=== PATIENT | male | born 1975 | race Caucasian/White ===

== ENCOUNTER 2016-05-17 07:14 | Emergency (ER) | payer BC ==
[~2016-05-17] VITALS: Ht 180.3 cm; Wt 97.5 kg
[~2016-05-17 07:14] MED LIST: CYCLOBENZAPRINE10 MG PO; EC NAPROSYN500 MG PO; NKHM; NORFLEX100 MG PO; PERCOCET 325 MG1 TA7 PO; TRAMADOL HCL50 MG PO; VICODIN ES 7501 TAB PO
[2016-05-17] MEDS ORDERED: ZITHROMAX250 MG PO (08:31)
== END 2016-05-17 08:40 | disposition home or self-care (01) ==
LOC: ED 07:14
DX: J40 Bronchitis, not specified as acute or chronic (principal)

== ENCOUNTER 2018-03-09 01:02 | Emergency (ER) | payer BC ==
[~2018-03-09] VITALS: Ht 180.3 cm; Wt 95.7 kg
[~2018-03-09 01:02] MED LIST changes: +ZITHROMAX250 MG PO
[2018-03-09 01:26] LABS: BASO # 0.1 10*3/uL (0.0-0.1); BASO % 0.5 % (0.0-1.0); EOS # 0.2 10*3/uL (0.0-0.4); HEMATOCRIT 44.6 % (42.0-52.0); HEMOGLOBIN 15.4 g/dl (14.0-18.0); LYMPH # 1.9 10*3/uL (1.3-4.4); LYMPH % 18.2 % (27.0-41.0); MEAN CORPUSCULAR HGB 30.7 pg (27.0-31.0); MEAN CORPUSCULAR HGB CONC 34.5 g/dl (33.0-37.0); MEAN PLATELET VOLUME 8.5 fl (9.6-12.3); MONO # 1.1 10*3/uL (0.1-1.0); MONO % 10.6 % (3.0-9.0); NEUT # 7.2 10*3/uL (2.3-7.9); NEUT % 68.2 % (47.0-73.0); PLATELET COUNT AUTOMATED 256 10*3/uL (130-400); RED BLOOD COUNT 5.01 10*6/uL (4.50-5.90); RED CELL DISTRI WIDTH 12.5 % (0-14.5); WHITE BLOOD COUNT 10.5 10*3/uL (4.8-10.8)
[2018-03-09 01:29] LABS: BILIRUBIN NEGATIVE (NEGATIVE); BLOOD TRACE-INTACT (NEGATIVE); CLARITY CLEAR (CLEAR); COLOR YELLOW (YELLOW); GLUCOSE NEGATIVE (NEGATIVE); KETONE TRACE (NEGATIVE); LEUKO ESTERASE NEGATIVE (NEGATIVE); NITRITE NEGATIVE (NEGATIVE); SPECIFIC GRAVITY >= 1.030 (1.005-1.030); UROBILINOGEN 0.2 E.U./dl (0.2-1.0)
[2018-03-09 01:40] LABS: ALBUMIN 3.6 gm/dl (3.1-4.5); ALKALINE PHOSPHATASE 80 U/L (45-117); BUN 18 mg/dl (7-24); CHLORIDE 105 mmol/L (98-107); CREATININE 1.32 mg/dL (0.70-1.30); LIPASE 94 U/L (73-393); POTASSIUM 4.2 mmol/L (3.5-5.1); SGOT/AST 20 IU/L (3-35); SGPT/ALT 37 U/L (12-78); SODIUM 141 mmol/L (136-145); TOTAL PROTEIN 7.4 gm/dL (6.4-8.2)
[2018-03-09] MEDS ORDERED: ULTRAM50 MG PO (04:12)
== END 2018-03-09 04:16 | disposition home or self-care (01) ==
LOC: ED 01:02
PROVIDERS: Nurse Practitioner Family
DX: N20.0 Calculus of kidney (principal); Z87.442 Personal history of urinary calculi

== ENCOUNTER → 2022-05-23 | Outpatient (CLI) | payer OTHER ==
[~2022-05-23] MED LIST changes: +ULTRAM50 MG PO
== END | disposition home or self-care (01) ==
LOC: MRI 05-09 14:00
PROVIDERS: ATTEND Nurse Practitioner Family
DX: S83.92XA Sprain of unspecified site of left knee, initial encounter (principal); M22.42 Chondromalacia patellae, left knee; M25.462 Effusion, left knee; X58.XXXA Exposure to other specified factors, initial encounter; Y93.89 Activity, other specified; Y92.89 Other specified places as the place of occurrence of the external cause; Y99.8 Other external cause status

== ENCOUNTER → 2023-02-20 | Outpatient (CLI) | payer BC ==
[2023-02-20 12:13] LABS: BASO # 0.1 10*3/uL (0.0-0.1); BASO % 1.1 % (0.0-1.0); EOS # 0.3 10*3/uL (0.0-0.4); EOS % 5.3 % (1.0-4.0); HEMATOCRIT 44.6 % (42.0-52.0); LYMPH # 1.4 10*3/uL (1.3-4.4); MEAN CELL VOLUME 89.4 fl (80.0-94.0); MEAN CORPUSCULAR HGB 29.9 pg (27.0-31.0); MEAN CORPUSCULAR HGB CONC 33.4 g/dl (33.0-37.0); MEAN PLATELET VOLUME 8.8 fl (9.6-12.3); MONO # 0.8 10*3/uL (0.1-1.0); MONO % 16.5 % (3.0-9.0); NEUT # 2.2 10*3/uL (2.3-7.9); NEUT % 46.9 % (47.0-73.0); PLATELET COUNT AUTOMATED 229 10*3/uL (130-400); RED BLOOD COUNT 4.99 10*6/uL (4.50-5.90); RED CELL DISTRI WIDTH 12.5 % (0-14.5); RETICULOCYTE % 1.45 % (0.50-2.50); WHITE BLOOD COUNT 4.7 10*3/uL (4.8-10.8)
[2023-02-20 12:14] LABS: BILIRUBIN Negative (Negative); BLOOD Negative (Negative); CLARITY Clear (Clear); COLOR Yellow (Yellow); GLUCOSE Negative (Negative); KETONE Negative (Negative); LEUKO ESTERASE Negative (Negative); NITRITE Negative (Negative)
[2023-02-20 12:26] LABS: EPITHELIAL CELLS 0-2; MUCOUS TRACE; WBC 0-2 wbc/hpf (0-5)
[2023-02-20 12:45] LABS: ALKALINE PHOSPHATASE 93 U/L (46-116); BUN 15 mg/dl (9-23); CHLORIDE 107 mmol/L (98-107); CHOLESTEROL 173 mg/dL (<200); GAMMA GLUTAMYL TRANSPEPTIDASE 115 U/L (0-73); LDL CHOLESTEROL 113 mg/dL (9-159); POTASSIUM 3.9 mmol/L (3.4-5.1); SGPT/ALT 60 U/L (5-49); T3 UPTAKE 35.3 % (22.4-36.7); THYROXINE (T4) TOTAL 4.5 ug/dl (4.5-10.9); TRIGLYCERIDES 108 mg/dl (<150); URIC ACID 4.9 mg/dL (3.7-9.2)
[2023-02-20 12:53] LABS: VITAMIN D, 25-HYDROXY 24.2 ng/mL (30-100)
[2023-02-21 11:07] LABS: ANTI-DSDNA ANTIBODIES <1 IU/mL (0-9)
== END | disposition home or self-care (01) ==
LOC: LAB 11:37
PROVIDERS: ATTEND Family Medicine
DX: I27.89 Other specified pulmonary heart diseases (principal); R79.89 Other specified abnormal findings of blood chemistry; R53.83 Other fatigue; E78.5 Hyperlipidemia, unspecified; E55.9 Vitamin D deficiency, unspecified; R06.02 Shortness of breath; M47.814 Spondylosis without myelopathy or radiculopathy, thoracic region

== ENCOUNTER → 2023-02-23 | Outpatient (CLI) | payer BC | END | disposition home or self-care (01) | LOC: CT 16:45 | PROVIDERS: ATTEND Family Medicine | DX: R06.02 Shortness of breath (principal); R05.9 Cough, unspecified; K76.89 Other specified diseases of liver ==

== ENCOUNTER → 2023-06-19 | Outpatient (CLI) | payer BC ==
[2023-06-19 09:42] LABS: BUN 17 mg/dl (9-23)
== END | disposition home or self-care (01) ==
LOC: LAB 09:08
PROVIDERS: ATTEND Internal Medicine
DX: R07.89 Other chest pain (principal); R53.83 Other fatigue

== ENCOUNTER → 2024-01-31 | Outpatient (CLI) | payer BC ==
[2024-01-31 15:13] LABS: BASO # 0.1 10*3/uL (0.0-0.1); BASO % 0.9 % (0.0-1.0); EOS # 0.1 10*3/uL (0.0-0.4); EOS % 0.8 % (1.0-4.0); HEMATOCRIT 48.2 % (42.0-52.0); MEAN CELL VOLUME 89.6 fl (80.0-94.0); MEAN CORPUSCULAR HGB 30.1 pg (27.0-31.0); MEAN CORPUSCULAR HGB CONC 33.6 g/dl (33.0-37.0); MEAN PLATELET VOLUME 8.7 fl (9.6-12.3); MONO # 0.6 10*3/uL (0.1-1.0); MONO % 7.8 % (3.0-9.0); NEUT # 4.6 10*3/uL (2.3-7.9); NEUT % 62.6 % (47.0-73.0); PLATELET COUNT AUTOMATED 272 10*3/uL (130-400); RED BLOOD COUNT 5.38 10*6/uL (4.50-5.90); RED CELL DISTRI WIDTH 13.2 % (0-14.5); RETICULOCYTE % 1.87 % (0.50-2.50); WHITE BLOOD COUNT 7.4 10*3/uL (4.8-10.8)
[2024-01-31 15:15] LABS: BILIRUBIN Negative (Negative); BLOOD Negative (Negative); CLARITY Cloudy (Clear); COLOR Yellow (Yellow); GLUCOSE Negative (Negative); KETONE Negative (Negative); LEUKO ESTERASE Negative (Negative); NITRITE Negative (Negative); PH 7.5 (4.5-8.0); UROBILINOGEN 0.2 E.U./dl (0.0-1.0)
[2024-01-31 15:39] LABS: BACTERIA TRACE; EPITHELIAL CELLS 0-2; WBC 0-2 wbc/hpf (0-5)
[2024-01-31 15:49] LABS: ALKALINE PHOSPHATASE 107 U/L (46-116); BUN 15 mg/dl (9-23); CHLORIDE 105 mmol/L (98-107); CHOLESTEROL 214 mg/dL (<200); GAMMA GLUTAMYL TRANSPEPTIDASE 155 U/L (0-73); LDL CHOLESTEROL 130 mg/dL (9-159); POTASSIUM 4.6 mmol/L (3.4-5.1); SGPT/ALT 39 U/L (5-49); TOTAL PROTEIN 7.6 gm/dL (6.0-8.0); TRIGLYCERIDES 200 mg/dl (<150)
[2024-01-31 16:02] LABS: VITAMIN D, 25-HYDROXY 22.8 ng/mL (30-100)
== END | disposition home or self-care (01) ==
LOC: LAB 14:14
PROVIDERS: ATTEND Family Medicine
DX: R06.02 Shortness of breath (principal); R79.89 Other specified abnormal findings of blood chemistry; R53.83 Other fatigue; E78.5 Hyperlipidemia, unspecified; R74.8 Abnormal levels of other serum enzymes; E55.9 Vitamin D deficiency, unspecified; R06.2 Wheezing

== ENCOUNTER → 2024-02-07 | Outpatient (CLI) | payer BC ==
[2024-02-07 10:27] LABS: TOTAL PROTEIN 7.4 gm/dL (6.0-8.0)
[2024-02-08 06:08] LABS: HBsAG SCREEN Negative (Negative); HCV Ab Non Reactive (Non Reactive); HEP B CORE Ab, IgM Negative (Negative)
== END | disposition home or self-care (01) ==
LOC: LAB 09:42
PROVIDERS: ATTEND Family Medicine
DX: R53.83 Other fatigue (principal); R79.89 Other specified abnormal findings of blood chemistry; E78.5 Hyperlipidemia, unspecified; R74.8 Abnormal levels of other serum enzymes

== ENCOUNTER → 2024-02-12 | Outpatient (CLI) | payer BC ==
[~2024-02-12] MED LIST changes: +GADOTERATE MEGLUMINE 10 MMOL/20 ML VIAL IV ONE
== END | disposition home or self-care (01) ==
LOC: US 12:30
PROVIDERS: ATTEND Family Medicine
DX: I65.23 Occlusion and stenosis of bilateral carotid arteries (principal); K76.89 Other specified diseases of liver; R10.84 Generalized abdominal pain; R10.2 Pelvic and perineal pain; R51.9 Headache, unspecified; R42 Dizziness and giddiness; K76.0 Fatty (change of) liver, not elsewhere classified